=== PATIENT | male | born 1950 | race Caucasian/White ===

== ENCOUNTER 2016-08-15 14:29 | Observation (INO) ==
--- NOTE | 2016-08-15 16:05 | Emergency Department Note ---
Disposition Clinical Impression: Dizziness, nonspecific Chest pain Qualifiers: Chest pain type: unspecified Qualified Code(s): R07.9 - Chest pain, unspecified Disposition: Admitted As Inpatient Condition: Good Referrals: Manolo Monson MD [Primary Care Provider] - Forms: ED Satisfaction Letter Chest Pain HPI - General Chief Complaint: ED Chest Pain Stated Complaint: chest pain, sent from Dr. Monson Time Seen by Provider: 08/15/16 15:32 Source: patient, family Limitations: no limitations Vital Signs Reviewed: Yes Nursing Notes Reviewed: Yes - History of Present Illness HPI Narrative: Patient is a 65-year-old male who presents from his PCP office for 4 days of multiple symptoms including chest pain, dyspnea, abnormal gait, and also feeling like he just does not feel well. He has had a CVA workup in 2014 also follows with a neurologist for stuttering and migraines and also had a negative cardiac catheterization 1999. He does have a strong family history for coronary disease his son had a 5 vessel CABG at the age of 43 and his grandfather of [place] at 44. He states he gets episodes where he gets some chest pain nausea diaphoretic is off-balance lightheaded and also runs in the things. This can last upwards of an hour and then resolves on its own. Nothing seems to make this better or worse he saw his memory care doctor today who was concerned and sent him over to the ER for hospitalization Pt complaint: chest pain Onset (ago): day(s) (4) Severity scale (1-10): 10 Improves with: nothing Worsens with: nothing Treatments prior to arrival chest pain: aspirin - Related Data Home Medications Medication Instructions Recorded Confirmed Ambien 5 mg PO DAILY 01/26/15 01/26/15 Atenolol 01/26/15 01/26/15 Carvedilol Phosphate [Coreg Cr] 40 mg PO DAILY 01/26/15 01/26/15 Duloxetine 60 mg PO BID 01/26/15 01/26/15 Gabapentin 1,200 mg PO TID 01/26/15 01/26/15 Insulin DETEMIR [Levemir] 90 unit SQ HS 01/26/15 01/26/15 Levemir 75 units SQ QAM 01/26/15 01/26/15 Losartan/Hydrochlorothiazide 01/26/15 01/26/15 Metformin 1,000 mg PO BID 01/26/15 01/26/15 [place] 10-325 Tablet 1 tab PO QID 01/26/15 01/26/15 NovoLOG 30 units SQ TID 01/26/15 01/26/15 Vitamin D3/Folic Acid [Ortho D 2 each PO DAILY 01/26/15 01/26/15 3,775 Unit-1 mg Cap] Previous Rx's Medication Instructions Recorded Aspirin 325 mg PO DAILY #30 tablet 01/26/15 Topiramate [Topamax] 25 mg PO HS #30 tablet 01/26/15 Allergies Allergy/AdvReac Type Severity Reaction Status Date / Time Bee Pollen Allergy Anaphylaxis Verified 08/15/16 14:46 pregabalin [From Lyrica] Allergy Depression Verified 08/15/16 14:46 Warfarin [From Coumadin] Allergy See Verified 08/15/16 14:46 Comments All systems ED: reviewed and negative except as stated. Constitutional: Reports: chills, weakness. Denies: fever Cardiovascular: Reports: chest pain, palpitations Respiratory: Reports: dyspnea Neurological: Reports: weakness, abnormal gait Chest Pain PMH - Past Medical History Medical history: Reports: diabetes, GERD, hyperlipidemia, hypertension, other Psychiatric history: Reports: no psych history - Social History Smoking Status: Former smoker Alcohol use: Reports: none Drug use: Reports: none Physical Exam - General Limitations: no limitations General appearance: alert - Head Head exam: atraumatic, normocephalic, normal inspection - Eye Eye exam: Present: normal appearance, PERRL, EOMI - Expanded Eye Exam Pupils: Left: reactive - ENT ENT exam: normal exam, normal oropharynx, mucous membranes moist - Expanded ENT Exam External ear exam: Present: normal external inspection Mouth exam: Present: normal external inspection Teeth exam: Present: normal inspection Throat exam: Present: normal inspection - Neck Neck exam: Present: normal inspection, full ROM, trachea midline - Chest Chest inspection: Present: normal inspection, symmetric chest wall rise - Respiratory Respiratory exam: Present: normal lung sounds bilaterally - Cardiovascular Cardiovascular exam: Present: regular rate, normal rhythm, normal heart sounds - Abdominal Exam Abdominal exam: Present: soft, Non-Tender. Absent: tenderness, distention, guarding, rebound, rigidity - Extremities Exam Extremities exam: Present: normal inspection, full ROM. Absent: tenderness, pedal edema - Expanded Upper Extremity Exam Shoulder exam: Present: normal inspection, full ROM Arm exam: Present: normal inspection, full ROM Elbow exam: Present: normal inspection, full ROM Forearm/Wrist exam: Present: normal inspection, full ROM Hand exam: Present: normal inspection, full ROM Vascular exam: Normal: capillary refill, radial pulse - Expanded Lower Extremity Exam Hip/Pelvis exam: Present: normal inspection, full ROM Upper leg exam: Present: normal inspection, full ROM Knee exam: Present: normal inspection, full ROM Lower leg exam: Present: normal inspection, full ROM Ankle exam: Present: normal inspection, full ROM Foot/toe exam: Present: normal inspection, full ROM Neurovascular/Tendon exam: Absent: motor deficit, sensory deficit, tendon deficit - Back Exam Back exam: Present: normal inspection, full ROM. Absent: tenderness - Neurological Exam Neurological exam: Present: alert, oriented X3 - Expanded Neurological Exam Patient oriented to: Present: person, place, time Coma Scale Eye Opening: Spontaneous Coma Scale Motor Response: Obeys Commands Coma Scale Verbal Response: Oriented Coma Scale Total: 15 - Psychiatric Psychiatric exam: Present: normal affect, normal mood - Skin Skin exam: Present: warm, dry, intact, normal color Course Vital Signs Temperature 97.5 F L 08/15/16 14:42 Pulse Rate 71 08/15/16 14:42 Respiratory Rate 18 08/15/16 14:42 Blood Pressure 150/79 08/15/16 14:42 O2 Sat by Pulse Oximetry 96 08/15/16 14:42 Temperature 97.5 F L 08/15/16 14:42 Pulse Rate 62 08/15/16 17:53 Respiratory Rate 18 08/15/16 17:53 Blood Pressure 155/81 08/15/16 17:53 O2 Sat by Pulse Oximetry 93 08/15/16 17:53 Oxygen Delivery Oxygen Delivery Room Air Chest Pain - Differential Diagnosis Likely: stable angina, unstable angina pectoris, atypical chest pain, chest pain - Medical Records Medical records reviewed: Yes I reviewed the patient's medical records. - Lab Data Lab results reviewed: Yes I reviewed the patient's lab results. Result diagrams: 08/15/16 15:56 08/15/16 15:56 Lab Results 08/15/16 08/15/16 08/15/16 Range/Units 15:56 15:56 15:56 WBC 8.3 (4.3-11.1) K/mcL RBC 5.13 (4.19-5.50) M/mcL Hgb 15.0 (12.9-16.9) g/dL Hct 45.0 (37.5-50.1) % MCV 87.7 (83.0-100.0) fL MCH 29.2 (28.0-33.3) pg MCHC 33.3 (31.6-35.5) g/dL RDW 13.2 (11.5-14.5) % Plt Count 368 (140-400) K/mcL MPV 9.3 L (9.4-12.4) fL Immature Gran % 0.5 (0-4) % Seg Neutrophils % 57.0 % Lymphocytes % 27.4 % Monocytes % 9.8 % Eosinophils % 4.1 % Basophils % 1.2 % Neutrophils # 4.7 (1.6-8.9) K/mcL Lymphocytes # 2.3 (0.6-4.6) K/mcL Monocytes # 0.8 (0.0-1.3) K/mcL Eosinophils # 0.3 (0.0-0.6) K/mcL Basophils # 0.1 (0.0-0.2) K/mcL PT 10.3 (9.4-12.1) Seconds INR 1.0 APTT 30.0 (26.0-36.0) Seconds D-Dimer 263 (0-500) ng/mLFEU Sodium 134 L (136-145) mEq/L Potassium 3.6 (3.5-4.5) mEq/L Chloride 99 (98-109) mEq/L Carbon Dioxide 23 (19-29) mEq/L BUN 13 (8-26) mg/dL Creatinine 1.46 H (0.72-1.25) mg/dL Est GFR ( Amer) 59 L (> 60) Est GFR (Non-Af Amer) 48 L (> 60) BUN/Creatinine Ratio 9 (6-26) Glucose 254 H (70-99) mg/dL Calculated Osmolality 287 (280-300) Calcium 9.6 (8.6-10.8) mg/dL Troponin I (0-0.03) ng/mL 08/15/16 Range/Units 15:56 WBC (4.3-11.1) K/mcL RBC (4.19-5.50) M/mcL Hgb (12.9-16.9) g/dL Hct (37.5-50.1) % MCV (83.0-100.0) fL MCH (28.0-33.3) pg MCHC (31.6-35.5) g/dL RDW (11.5-14.5) % Plt Count (140-400) K/mcL MPV (9.4-12.4) fL Immature Gran % (0-4) % Seg Neutrophils % % Lymphocytes % % Monocytes % % Eosinophils % % Basophils % % Neutrophils # (1.6-8.9) K/mcL Lymphocytes # (0.6-4.6) K/mcL Monocytes # (0.0-1.3) K/mcL Eosinophils # (0.0-0.6) K/mcL Basophils # (0.0-0.2) K/mcL PT (9.4-12.1) Seconds INR APTT (26.0-36.0) Seconds D-Dimer (0-500) ng/mLFEU Sodium (136-145) mEq/L Potassium (3.5-4.5) mEq/L Chloride (98-109) mEq/L Carbon Dioxide (19-29) mEq/L BUN (8-26) mg/dL Creatinine (0.72-1.25) mg/dL Est GFR ( Amer) (> 60) Est GFR (Non-Af Amer) (> 60) BUN/Creatinine Ratio (6-26) Glucose (70-99) mg/dL Calculated Osmolality (280-300) Calcium (8.6-10.8) mg/dL Troponin I 0.00 (0-0.03) ng/mL - Radiology Data Radiology results reviewed: Yes I reviewed the patient's radiology results. - EKG Data EKG attestation: Yes I reviewed and interpreted this EKG. EKG shows normal: sinus rhythm Rate: normal Rhythm: NSR Voltage: c/w LVH Interpretation: no acute changes, unchanged when compared to prior tracing (date ) (01/15/15)
[2016-08-15 16:06] LABS: Basophils # 0.1 K/mcL (0.0-0.2); Basophils % 1.2 %; Eosinophils # 0.3 K/mcL (0.0-0.6); Eosinophils % 4.1 %; Immature Granulocytes % 0.5 % (0-4); Lymphocytes # 2.3 K/mcL (0.6-4.6); Lymphocytes % 27.4 %; Mean Corpuscular HGB Conc 33.3 g/dL (31.6-35.5); Mean Corpuscular Hemoglobin 29.2 pg (28.0-33.3); Mean Corpuscular Volume 87.7 fL (83.0-100.0); Mean Platelet Volume 9.3 fL (9.4-12.4); Monocytes # 0.8 K/mcL (0.0-1.3); Monocytes % 9.8 %; Neutrophils # 4.7 K/mcL (1.6-8.9); Platelet Count 368 K/mcL (140-400); Red Blood Count 5.13 M/mcL (4.19-5.50); Red Cell Distribution Width 13.2 % (11.5-14.5)
[2016-08-15 16:12] LABS: Prothrombin Time 10.3 Seconds (9.4-12.1)
[2016-08-15 16:20] LABS: Calcium 9.6 mg/dL (8.6-10.8); Potassium 3.6 mEq/L (3.5-4.5)
--- NOTE | 2016-08-15 18:11 | Electrocardiograph Report ---
[facility] Test Date: 2016-08-15 Pat Name: Lucio Valenzuela Department: 104 Room: Gender: M [employer]: : 1950 Requested By: Inocencia Goodwin Order Number: [id number] Reading MD: Rasta Ellsworth MD Measurements Intervals [place] Rate: 65 P: 27 IL: 156 QRS: -5 QRSD: 106 T: 145 QT: 393 QTc: 405 Interpretive Statements SINUS RHYTHM LEFT VENTRICULAR HYPERTROPHY AND ST-T CHANGE Electronically Signed On 08-15-2016 18:10:06 EDT by Rasta Ellsworth MD
[2016-08-15] MEDS ORDERED: Aspirin 81 MG TAB.CHEW PO STA (20:05)
--- NOTE | 2016-08-15 20:57 | Internal Med History&Physical ---
Date of Encounter: 08/15/16 Time of Encounter: 20:53 Assessment and Plan (1) Chest pain Current visit: Yes Status: Acute patient with multiple cardiac risk factor presenting with typical chest pain of cardiac , ekg is abormal inferior lat st t changes more of lvh/ strain will start with nuclear stress in am Qualifiers: Chest pain type: unspecified Qualified Code(s): R07.9 - Chest pain, unspecified (2) Dizziness, nonspecific Current visit: Yes Status: Chronic non specific possible progresion of his prior cva neuro consult (3) Diabetes Current visit: No Status: Chronic resume home meds and sliding scale Qualifiers: Diabetes mellitus type: type 2 Diabetes mellitus complication status: with unspecified complications Diabetes mellitus oysterman insulin use: unspecified residential insulin use status Qualified Code(s): E11.8 - Type 2 diabetes mellitus with unspecified complications (4) Hypertension Current visit: No Status: Chronic uncontrollled with likely contribution of ischemia Qualifiers: Hypertension type: essential hypertension Qualified Code(s): I10 - Essential (primary) hypertension (5) Acute renal failure Current visit: No Status: Acute will start iv hydration and monitor Qualifiers: Acute renal failure type: unspecified Qualified Code(s): N17.9 - Acute kidney failure, unspecified Internal Medicine - H&P: HPI Chief complaint: chest pain and sob Admitted From: Emergency Dept Plans for Post Hospital Care: Home History of present illness: Mr. Valenzuela is a 65 year old male Patient with history of diabetes, obesity, prior CVA 2015 , hypertension, high cholesterol, strong family history of CAD patient presents to Emergency room with 4 days of chest pain described chest pain as a tightness and pressure associated with nausea and diaphoresis, . chest pain recurrent and sometimes wakes up at night and decided to come to the emergency room also has concern of abnormal gait He did have CVA 2015. He is now chest pain-free at the time am seeing him EKG is abnormal showing inferior lateral ST T wave changes nonspecific troponin so far is negative blood pressure was high at 1 70/78 Past Med Surg Social Fam HX - Past Medical History Medical history: CVA, diabetes, GERD, hyperlipidemia, hypertension, other Psychiatric history: no psych history - Social History Smoking Status: Former smoker Smokeless Tobacco Status: No Alcohol use: none Drug use: none - Family History Mother Family Member Ethnicity: Non- Living Status: Hx Family Cancer: Yes (stomach cancer.) Son Family Member Ethnicity: Non- Living Status: Still Living Hx Family Cardiac Disorders: Yes ([place] with 5 stents.) Internal Medicine - H&P: Meds Aspirin 325 mg PO DAILY #30 tablet 01/26/15 [Rx] Carvedilol Phosphate [Coreg Cr] 40 mg PO DAILY 01/26/15 [History] Duloxetine HCl [Cymbalta] 60 mg PO BID #0 01/26/15 [History] Gabapentin [Neurontin] 1,200 mg PO TID #0 01/26/15 [History] HYDROcodone/Acet 10/325 mg [[place] 10-325 mg] 1 tab PO Q6HR PRN #0 01/26/15 [ History] Hydrochlorothiazide 25 mg PO DAILY #0 01/26/15 [History] Insulin ASPART [Novolog] 150 unit SQ DAILY #0 MDD PER INSULIN PUMP 01/26/15 [ History] Lisinopril [Zestril] 10 mg PO DAILY #0 01/26/15 [History] Metformin HCl [Glucophage] 1,000 mg PO BID #0 01/26/15 [History] Zolpidem [Ambien] 5 mg PO HS PRN #0 01/26/15 [History] Amlodipine Besylate 10 mg PO DAILY 08/15/16 [History] Atorvastatin [Lipitor] 40 mg PO HS 08/15/16 [History] Bisacodyl [Dulcolax] 5 mg PO DAILY PRN 08/15/16 [History] Capsaicin [Zostrix] 1 appl TP TID 08/15/16 [History] Cranberry 500 mg PO DAILY 08/15/16 [History] Diclofenac Sodium [Voltaren] 1 appl TP QID PRN 08/15/16 [History] Donepezil [Aricept] 10 mg PO HS 08/15/16 [History] EPINEPHrine [Epipen] 0.3 mg IM AD PRN 08/15/16 [History] Ergocalciferol (VITAMIN D2) [Vitamin D] 800 unit PO DAILY 08/15/16 [History] Esomeprazole Magnesium [Nexium] 40 mg PO DAILY 08/15/16 [History] Exenatide Microspheres [Bydureon] 2 mg SQ QWEEK 08/15/16 [History] Finasteride [Proscar] 5 mg PO DAILY 08/15/16 [History] Fluticasone Propionate Nasal [Flonase] 1 spray NS DAILY 08/15/16 [History] Guaifenesin [Mucinex] 600 mg PO BID 08/15/16 [History] Lidocaine [Lc-5] 1 appl TP Q4-6H PRN 08/15/16 [History] Loratadine [Allergy Relief] 10 mg PO DAILY 08/15/16 [History] Mineral Oil/Petrolatum,White [Hydrocerin Cream] 1 appl TP DAILY 08/15/16 [ History] Tadalafil [Cialis] 5 mg PO DAILY PRN 08/15/16 [History] Tamsulosin [Flomax] 0.8 mg PO DAILY 08/15/16 [History] Testosterone Cypionate [Depo-Testosterone] 200 mg IM Q2W 08/15/16 [History] Topiramate [Topamax] 25 mg PO BID 08/15/16 [History] Triamcinolone Acet 0.1% CRM [Kenalog] 1 appl TP BID 08/15/16 [History] Allergies Bee Pollen Allergy (Verified 08/15/16 14:46) Anaphylaxis pregabalin [From Lyrica] Allergy (Verified 08/15/16 14:46) Depression Warfarin [From Coumadin] Allergy (Verified 08/15/16 14:46) See Comments All Systems PM: A 10-system review of systems was performed and is negative for pertinent findings except as documented above in the HPI. - Constitutional Constitutional: fatigue - EENT Eyes: no change in vision, no discharge, no pain, no photophobia Ears: no ear discharge, no ear pain, no tinnitus Nose, mouth and throat: no dysphagia, no nasal discharge, no neck pain, no sore throat - Cardiovascular Cardiovascular ROS IM: chest pain, diaphoresis, dyspnea on exertion - Respiratory Respiratory: dyspnea, dyspnea on exertion - Gastrointestinal Gastrointestinal: no abdominal pain, no diarrhea, no hematemesis, no hematochezia, no melena, no nausea, no vomiting - Musculoskeletal Musculoskeletal ROS IM: no numbness, no tingling - Neurological Neurological ROS: no confusion, no convulsions, no focal weakness, no numbness, no tingling, no tremor(s) - Hematologic/Lymphatic Hematologic/Lymphatic: no easy bruising - Constitutional Vitals: Temp Pulse Resp BP Pulse Ox 97.7 F 63 16 176/78 98 08/15/16 20:30 08/15/16 20:30 08/15/16 20:30 08/15/16 20:30 08/15/16 20:30 General appearance: Present: A&O X 3 - Eye Eye exam: Present: PERRL, conjuntiva pink, sclera anicteric Pupils: Present: PERRL - Respiratory Respiratory exam: Present: CTAB. Absent: accessory muscle use, rales, rhonchi, wheezes - Cardiovascular Cardiovascular exam: Present: RRR, +S1, +S2, systolic murmur. Absent: diastolic murmur, gallop, rubs - GI/Abdominal GI/Abdominal exam: Present: normal bowel sounds, soft, no peritoneal signs. Absent: distended, tenderness - Extremities Exam Extremities exam: Present: warm, radial pulses palpable and symetrical. Absent : calf tenderness, cyanotic, pedal edema Internal Med - H&P Results - Labs CBC & Chem 7: 08/15/16 15:56 08/15/16 15:56
[2016-08-15] MEDS ORDERED: *HR* Morphine 2 MG/ML SYRINGE IVP PRN (21:04)
[2016-08-15] MEDS ORDERED: Naloxone 0.4 MG/ML INJ IVP PRN (21:04)
[2016-08-15] MEDS ORDERED: Lidocaine OINT 35.44 GM TUBE TP PRN (21:06)
[2016-08-15] MEDS ORDERED: Dextrose Gel 15 GM PO PRN ×2 (21:10)
[2016-08-15] MEDS ORDERED: *HR* Dextrose 50 % in Water (Syg) 50 ML SYRINGE IVP PRN (21:10)
[2016-08-15] MEDS ORDERED: D5% in Water 1,000 ML IVC PRN (21:10)
[2016-08-15] MEDS: *HR* HYDROcodone/Acet 10/325 mg TABLET PO PRN (21:55)
[2016-08-15] MEDS: 0.9 % Sodium Chloride 1,000 ML IVC SCH (21:56)
[2016-08-16 04:39] LABS: Chol/HDL Ratio 6.5 (0-4.9); Magnesium 2.2 mg/dL (1.6-2.6)
[2016-08-16] MEDS ORDERED: Regadenoson 0.4 MG/5 ML SYRINGE IVP ONE (06:34)
[2016-08-16] MEDS ORDERED: Insulin LISPRO 300 UNITS/3 ML VIAL SQ SCH ×2 (07:30→21:00)
[2016-08-16] MEDS ORDERED: hydroCHLOROthiazide 25 MG TABLET PO SCH (09:00)
[2016-08-16] MEDS ORDERED: Fluticasone Propionate Nasal 50 MCG/SPRAY BOTTLE NS SCH (09:00)
[2016-08-16] MEDS ORDERED: Gabapentin 400 MG CAPSULE PO SCH (09:00)
[2016-08-16] MEDS ORDERED: Aspirin 325 MG TABLET PO SCH (09:00)
[2016-08-16] MEDS ORDERED: amLODIPine 5 MG TABLET PO SCH (09:00)
[2016-08-16] MEDS ORDERED: Cholecalciferol (D-3) 1,000 UNIT TABLET PO SCH (09:00)
[2016-08-16] MEDS ORDERED: Finasteride 5 MG TABLET PO SCH (09:00)
[2016-08-16] MEDS ORDERED: Triamcinolone Acet 0.1% CRM 15 GM TUBE TP SCH (09:00)
[2016-08-16] MEDS ORDERED: Loratadine 10 MG TABLET PO SCH (09:00)
[2016-08-16] MEDS ORDERED: Topiramate 25 MG TABLET PO SCH (09:00)
--- NOTE | 2016-08-16 10:55 | Neurology - Consult Note ---
Date of Encounter: 08/16/16 Time of Encounter: 10:52 Assessment and Plan (1) Dizziness, nonspecific Current Visit: Yes Status: Chronic This gentleman presents with complaint of new onset dizziness without any specific focal or lateralized component of the history or his neurologic examination. His speech is stuttering minimally, however he makes no paraphasic errors and is not dysarthric. I find no asymmetries and strength. Cranial nerves are all intact. However I would like to get a better look at the posterior fossa to rule out cerebellar or brainstem ischemia. Particularly given his prior history and risk factor profile. I would therefore like to obtain an MRI scan of the brain. He is currently taking a full adult aspirin daily. We will maintain his current dosing pending further results of the MRI scan. If it shows evidence of acute ischemia and then we will likely discontinue the aspirin and start Plavix. In the meantime stroke protocol orders should be followed. The documentation in the history of HPI and plan were at least partially created by [employer] voice recognition technology by Dr. Byrd. Errors in grammar, wording or other phrases may exist. If errors are found after the documentation signed, they will be addressed individually in the addendum section of this document when appropriate. History of Present Illness HPI: Mr. Valenzuela is a 65 year old male who is being seen for neurologic consultation secondary to dizziness and unsteadiness. This gentleman has previously seen my former associate Dr. 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 He also has several other stroke risk factors. He presents today with complaints of chest pain with associated "dizziness. He denies any new visual changes. He has a previous history of seeing floaters which has not changed. And he denies any new numbness or paresthesias however goes on to explain that he always has numbness in his legs but is not identified anything new. He feels as though he is still not "clear minded". He stutters minimally. I see no evidence of paraphasic errors or dysarthria when he speaks at all. Currently seeing a neurologist in [place]. He was previously evaluated for primary progressive aphasia which she was ultimately determined not to have. He still has occasional migraine headaches. He also has a history of PTSD. He is currently awake alert oriented to person place and time and able to give a lucid history of his own medical account. A CT scan of the brain does reveal some evidence of atrophy along with some chronic ischemic deep white matter change. I am not able to get a good look at the posterior fossa. I am particularly concerned about an area involving the left brain stem. Past Med Surg Social Fam HX - Past Medical History Medical history: CVA, diabetes, GERD, hyperlipidemia, hypertension, other Psychiatric history: no psych history - Social History Smoking Status: Former smoker Smokeless Tobacco Status: No Alcohol use: none Drug use: none - Family History Mother Family Member Ethnicity: Non- Living Status: Hx Family Cancer: Yes (stomach cancer.) Son Family Member Ethnicity: Non- Living Status: Still Living Hx Family Cardiac Disorders: Yes ([place] with 5 stents.) Medications and Allergies Aspirin 325 mg PO DAILY #30 tablet 01/26/15 [Rx] Carvedilol Phosphate [Coreg Cr] 40 mg PO DAILY 01/26/15 [History] Duloxetine HCl [Cymbalta] 60 mg PO BID #0 01/26/15 [History] Gabapentin [Neurontin] 1,200 mg PO TID #0 01/26/15 [History] HYDROcodone/Acet 10/325 mg [[place] 10-325 mg] 1 tab PO Q6HR PRN #0 01/26/15 [ History] Hydrochlorothiazide 25 mg PO DAILY #0 01/26/15 [History] Insulin ASPART [Novolog] 150 unit SQ DAILY #0 MDD PER INSULIN PUMP 01/26/15 [ History] Lisinopril [Zestril] 10 mg PO DAILY #0 01/26/15 [History] Metformin HCl [Glucophage] 1,000 mg PO BID #0 01/26/15 [History] Zolpidem [Ambien] 5 mg PO HS PRN #0 01/26/15 [History] Amlodipine Besylate 10 mg PO DAILY 08/15/16 [History] Atorvastatin [Lipitor] 40 mg PO HS 08/15/16 [History] Bisacodyl [Dulcolax] 5 mg PO DAILY PRN 08/15/16 [History] Capsaicin [Zostrix] 1 appl TP TID 08/15/16 [History] Cranberry 500 mg PO DAILY 08/15/16 [History] Diclofenac Sodium [Voltaren] 1 appl TP QID PRN 08/15/16 [History] Donepezil [Aricept] 10 mg PO DAILY 08/15/16 [History] EPINEPHrine [Epipen] 0.3 mg IM AD PRN 08/15/16 [History] Ergocalciferol (VITAMIN D2) [Vitamin D] 800 unit PO DAILY 08/15/16 [History] Esomeprazole Magnesium [Nexium] 40 mg PO DAILY 08/15/16 [History] Exenatide Microspheres [Bydureon] 2 mg SQ QWEEK 08/15/16 [History] Finasteride [Proscar] 5 mg PO DAILY 08/15/16 [History] Fluticasone Propionate Nasal [Flonase] 1 spray NS DAILY 08/15/16 [History] Guaifenesin [Mucinex] 600 mg PO BID 08/15/16 [History] Lidocaine [Lc-5] 1 appl TP Q4-6H PRN 08/15/16 [History] Loratadine [Allergy Relief] 10 mg PO DAILY 08/15/16 [History] Mineral Oil/Petrolatum,White [Hydrocerin Cream] 1 appl TP DAILY 08/15/16 [ History] Tadalafil [Cialis] 5 mg PO DAILY PRN 08/15/16 [History] Tamsulosin [Flomax] 0.8 mg PO DAILY 08/15/16 [History] Testosterone Cypionate [Depo-Testosterone] 200 mg IM Q2W 08/15/16 [History] Topiramate [Topamax] 25 mg PO BID 08/15/16 [History] Triamcinolone Acet 0.1% CRM [Kenalog] 1 appl TP BID 08/15/16 [History] Allergies Bee Pollen Allergy (Verified 08/15/16 14:46) Anaphylaxis pregabalin [From Lyrica] Allergy (Verified 08/15/16 14:46) Depression Warfarin [From Coumadin] Allergy (Verified 08/15/16 14:46) See Comments All Systems: A 10-system review of systems was performed and is negative for pertinent findings except as documented above in the HPI. Review of Systems: 10 point review of systems is consistent with a history of present illness otherwise negative. Physical Examination - Vital Signs Vital Signs: Initial Vital Signs Temp Pulse Resp BP Pulse Ox 97.5 F L 71 18 150/79 96 08/15/16 14:42 08/15/16 14:42 08/15/16 14:42 08/15/16 14:42 08/15/16 14:42 - Neurologic Detailed motor examination: grossly full strength in all extremities Detailed sensory examination: other (Decreased sensation to pinprick in a distal to proximal gradient.) Reflex and gait examination: intact Reflexes: Biceps: 1+, Triceps: 1+, Brachioradialis: 1+, Patella: 0, Achilles: 0 Mental Status Examination: awake, alert, oriented to person, oriented to place, oriented to time, follows commands appropriately, answers questions appropriately, no agnosia, no aphasia, no aproxia Cranial nerve examination: PERRL, EOMI, visual pinon intact, corneal reflexes brisk symmetrically, sensory to face intact, mastication intact, no facial asymmetry is present, no dysarthria, hearing is intact symmetrically, soft palate elevates bilaterally upon phonation, gag reflex intact, flexes SCM and trapezius muscles symmetrically with full power, tongue protrudes midline, no atrophy or facial fasiculations present Results - Laboratory Findings CBC and BMP: 08/15/16 15:56 08/15/16 15:56 Abnormal lab findings: Abnormal lab results MPV 9.3 fL (9.4-12.4) L 08/15/16 15:56 Sodium 134 mEq/L (136-145) L 08/15/16 15:56 Creatinine 1.46 mg/dL (0.72-1.25) H 08/15/16 15:56 Est GFR ( Amer) 59 (> 60) L 08/15/16 15:56 Est GFR (Non-Af Amer) 48 (> 60) L 08/15/16 15:56 Glucose 254 mg/dL (70-99) H 08/15/16 15:56 Triglycerides 245 mg/dL (< 150) H 08/16/16 03:44 LDL Cholesterol, Calc 105 mg/dL (0-99) H 08/16/16 03:44 VLDL Cholesterol, Calc 49 mg/dL (< 31) H 08/16/16 03:44 HDL Cholesterol 28 mg/dL (40-59) L 08/16/16 03:44 Cholesterol/HDL Ratio 6.5 (0-4.9) H 08/16/16 03:44 Consult Discharge Plan - Plan Referrals: Beam,Manolo W, MD [Primary Care Provider] - (appointment web requested )
[2016-08-16] MEDS: Capsaicin 0.025% 60 GM TUBE TP SCH ×2 (11:07→15:38)
[2016-08-16] MEDS: *HR* HYDROcodone/Acet 10/325 mg TABLET PO PRN (11:10)
[2016-08-16] MEDS: 0.9 % Sodium Chloride 1,000 ML IVC SCH (11:11)
--- NOTE | 2016-08-16 13:28 | Nuclear Medicine Stress Report ---
Regadenoson Nuclear Stress Name: Lucio Valenzuela Date of Study: 08/16/2016 Date: 1950 Ht: 69.0 in Medical Record#: [id number] Age: 65 Wt: 230.0 lb Gender: Male Order #: [id number] Location: [facility] Room: [facility] Supervising Provider: Reta Schneider CNP Reading Physician: Siddharth Soares DO, FACC, [facility] Ordering Physician: Flori Perea CNP Primary Care Physician: Manolo Monson MD Stress Technologist: George Kearney, STONE SANDB[employer]ER, CPFT Bacteriologist Medical: Ruddy Prasad Impression: Pharmacologic stress ECG is non diagnostic for ischemia due to baseline non-specific ST and T changes. Chest pain reported during stress, which is a nonspecific finding with Lexiscan. Gated EF = 61%. Small sized, mild intensity, primarily fixed inferior/inferolateral defect consistent with artifact. Perfusion imaging was negative for ischemia or infarct. History: Hypertension Diabetes Hypercholesteremia Stress Test Summary: Stress Test Type: Pharmacologic Regadenoson 0.4mg/5ml given IV Baseline Information: Initial Heart Rate: 65 Blood Pressure: 146/70 Stress Information: Stress Time: 4 min 00 sec Test Terminated Due to (primary): As per protocol Maximum Blood Pressure: 120/68 Maximum Heart Rate: 106 Percent Maximum Heart Rate Achieved: 68 Double Product: [id number] METS Reached: 1 Symptoms: Chest pain, Shortness of breath Nuclear Summary: SPECT myocardial perfusion imaging using Tc99m Sestamibi given intravenously was performed at rest and following cardiac stress testing. The resting images were obtained following initial dose of 11.7 mCi. Following stress an additional dose of 34.9 mCi was given at peak exercise or 30 seconds post regadenoson infusion. Medication Given: Time Medication Dose Units Route Findings: Stress Note * Resting ECG demonstrated normal sinus rhythm with ST-T changes. * No baseline arrhythmias were noted. * Pharmacologic stress ECG is non diagnostic for ischemia due to baseline non-specific ST and T changes. * No arrhythmias were noted during stress. * Chest pain reported during stress, which is a nonspecific finding with Lexiscan. * Normal hemodynamic responses to pharmacologic stress. Study Quality * Study quality is average. Gated EF % * Gated EF = 61%. * Normal wall motion. Inferior Perfusion Rest * The inferior/inferolateral segment shows a mild reduction in perfusion. Inferior Perfusion Stress * The inferior/inferolateral segment shows a mild reduction in perfusion. TID * No evidence of transient ischemic dilatation. * TID ratio = 1.12. Lung Uptake * There is no evidence of increase lung uptake. Updated by Siddharth Soares DO, GUS, BUD, TAMANNA on 08/16/2016 1:18:51 PM electronically signed on 08/16/2016 1:23:07 PM with status of Final
--- NOTE | 2016-08-16 15:24 | Discharge Summary ---
Date of Encounter: 08/16/16 Time of Encounter: 14:15 - Discharge Diagnosis (1) Chest pain Priority: Primary Status: Resolved Comments: Patient denied chest pain on day of discharge. Chest x-ray negative. Troponins negative. Stress test negative. ACS ruled out. Qualifiers: Chest pain type: unspecified Qualified Code(s): R07.9 - Chest pain, unspecified (2) Dizziness, nonspecific Priority: Secondary Status: Chronic Comments: Seen and evaluated by neurology who knows this patient well. 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 He denied any change or new focal neurological weaknesses. No vision difficulties. Brain MRI was obtained on day of discharge which was unremarkable for acute processes. Follow-up outpatient. (3) DEBORA (acute kidney injury) Priority: Primary Status: Acute Comments: Patient endorsing normal by mouth intake and urinary output. He denies dysuria. Recommend follow-up outpatient for recheck of CMP. (4) Hyperlipidemia Priority: Secondary Status: Chronic Comments: Triglyceride 245, rest of lipid panel borderline abnormal. Recommend low cholesterol diet and continuing his statin (5) Diabetes Priority: Secondary Status: Chronic Comments: Uncontrolled with an A1c last month of 8.9%. Recommend continued follow-up outpatient. Qualifiers: Diabetes mellitus type: type 2 Diabetes mellitus complication status: with unspecified complications Diabetes mellitus alf insulin use: unspecified alf insulin use status Qualified Code(s): E11.8 - Type 2 diabetes mellitus with unspecified complications (6) Hypertension Priority: Secondary Status: Chronic Comments: Uncontrolled. At home, he is on amlodipine 10 mg daily, lisinopril 10 mg daily , carvedilol 40 mg daily, HCTZ 25 mg daily. Heart rate average in the 60s. Will increase his lisinopril and have him check his blood pressure daily at home and follow up outpatient Qualifiers: Hypertension type: essential hypertension Qualified Code(s): I10 - Essential (primary) hypertension - Discharge Medications Prescriptions: Lisinopril [Zestril] 20 mg PO DAILY #30 tablet Home Medications: Aspirin 325 mg PO DAILY #30 tablet 01/26/15 [Rx] Carvedilol Phosphate [Coreg Cr] 40 mg PO DAILY 01/26/15 [History] Duloxetine HCl [Cymbalta] 60 mg PO BID #0 01/26/15 [History] Gabapentin [Neurontin] 1,200 mg PO TID #0 01/26/15 [History] HYDROcodone/Acet 10/325 mg [[place] 10-325 mg] 1 tab PO Q6HR PRN #0 01/26/15 [ History] Hydrochlorothiazide 25 mg PO DAILY #0 01/26/15 [History] Insulin ASPART [Novolog] 150 unit SQ DAILY #0 MDD PER INSULIN PUMP 01/26/15 [ History] Metformin HCl [Glucophage] 1,000 mg PO BID #0 01/26/15 [History] Zolpidem [Ambien] 5 mg PO HS PRN #0 01/26/15 [History] Amlodipine Besylate 10 mg PO DAILY 08/15/16 [History] Atorvastatin [Lipitor] 40 mg PO HS 08/15/16 [History] Bisacodyl [Dulcolax] 5 mg PO DAILY PRN 08/15/16 [History] Capsaicin [Zostrix] 1 appl TP TID 08/15/16 [History] Cranberry 500 mg PO DAILY 08/15/16 [History] Diclofenac Sodium [Voltaren] 1 appl TP QID PRN 08/15/16 [History] Donepezil [Aricept] 10 mg PO DAILY 08/15/16 [History] EPINEPHrine [Epipen] 0.3 mg IM AD PRN 08/15/16 [History] Ergocalciferol (VITAMIN D2) [Vitamin D] 800 unit PO DAILY 08/15/16 [History] Esomeprazole Magnesium [Nexium] 40 mg PO DAILY 08/15/16 [History] Exenatide Microspheres [Bydureon] 2 mg SQ QWEEK 08/15/16 [History] Finasteride [Proscar] 5 mg PO DAILY 08/15/16 [History] Fluticasone Propionate Nasal [Flonase] 1 spray NS DAILY 08/15/16 [History] Guaifenesin [Mucinex] 600 mg PO BID 08/15/16 [History] Lidocaine [Lc-5] 1 appl TP Q4-6H PRN 08/15/16 [History] Loratadine [Allergy Relief] 10 mg PO DAILY 08/15/16 [History] Mineral Oil/Petrolatum,White [Hydrocerin Cream] 1 appl TP DAILY 08/15/16 [ History] Tadalafil [Cialis] 5 mg PO DAILY PRN 08/15/16 [History] Tamsulosin [Flomax] 0.8 mg PO DAILY 08/15/16 [History] Testosterone Cypionate [Depo-Testosterone] 200 mg IM Q2W 08/15/16 [History] Topiramate [Topamax] 25 mg PO BID 08/15/16 [History] Triamcinolone Acet 0.1% CRM [Kenalog] 1 appl TP BID 08/15/16 [History] Lisinopril [Zestril] 20 mg PO DAILY #30 tablet 08/16/16 [Rx] Allergies/Adverse Reactions: Allergies Bee Pollen Allergy (Verified 08/15/16 14:46) Anaphylaxis pregabalin [From Lyrica] Allergy (Verified 08/15/16 14:46) Depression Warfarin [From Coumadin] Allergy (Verified 08/15/16 14:46) See Comments Procedures/tests Complete & Pending: Procedures Performed prior 72 hours Category Date Time Status NM tian perf SPECT multi [NM] Routine Exams 08/15/16 21:06 Taken MR head/brain wo con [MR] Stat MRI 08/16/16 11:23 Taken SP pharm nuclear stress Routine Y 08/15/16 21:06 Completed Date of admission: 08/15/16 19:05 Primary care physician: Manolo Monson MD Consults: 08/15/16 21:10 Consult to Neurology [CONS] Routine Consulting Provider: Neurology [facility] Reason for Consult: ataxia /abn gait Time Notified: 21:11 Call Completed: No Discharging clinician: Flori Perea Anticipated date of discharge: 08/16/16 - Patient Status Disposition: Home, Self-Care Condition: Fair Functional capacity at discharge: uses cane/walker Overall status at discharge: patient is back to baseline - Discharge Instructions Follow Up With: Manolo Monson MD [Primary Care Provider] - (appointment web requested ) Additional Instructions: Follow-up with primary care provider as scheduled - Diet and Activity Activity: increase activity as tolerated Diet: diabetic diet, low fat, low cholesterol, low salt diet Hospital course: Mr. Valenzuela is a 65 year old male with past medical history of CVA, hypertension , hyperlipidemia, diabetes, and former tobacco abuse. Patient presented to the emergency room for chief complaint 4 day history of chest pain described as tightness and pressure with nausea and diaphoresis. EKG emergency department with nonspecific ST-T wave changes. Patient was admitted to the hospitalist service for further evaluation and management. Chest x-ray negative. Head CT negative. Troponins negative. Echo stress test negative for ischemia or infarct and revealed an ejection fraction of 61%. Regarding his ataxia and complaint of dizziness, neurology was brought on board. His ataxia is not new for him and as it resulted from his stroke in 2015. He walks with a cane. He had no new focal neurological weaknesses but the dizziness was new cerebral brain MRI was obtained which was unremarkable. Per neurology, continue full strength aspirin and he has been cleared for outpatient follow-up. There was no indication for OT or PT consultations given that the patient was consistent with his baseline. Of note, he did have mild acute kidney injury of unknown etiology. He denied dysuria. He states he had good by mouth intake, recommend follow-up outpatient for repeat BMP. Regarding his blood pressure, it was uncontrolled. At home, he is on amlodipine 10 mg daily, lisinopril 10 mg daily , carvedilol 40 mg daily, HCTZ 25 mg daily. Heart rate average in the 60s so his lisinopril was increased and he was instructed to check his blood pressure daily at home, keep a log, and follow-up outpatient. He was discharged home in stable condition with close outpatient follow-up recommended. ITS Impressions Chest X-Ray 08/15/16 14:46 IMPRESSION: No acute process. D/ / 08/15/2016 15:08:43 Conrad Valdez MD / uriel Interpreting Provider: Conrad Valdez MD Head CT 08/15/16 15:59 IMPRESSION: No acute intracranial abnormality. D/ / Mt Shah MD / Mt Shah MD Interpreting Provider: Mt Shah MD Brain MRI 08/16/16 11:23 IMPRESSION: Cerebral atrophy. Mild chronic small vessel ischemic disease. No acute brain parenchymal abnormality. D/ / Claire Abreu MD / Claire Abreu MD Interpreting Provider: Claire Abreu MD Nuclear stress test impression: Pharmacologic stress ECG is nondiagnostic for ischemia due to baseline nonspecific ST and T changes. Chest pain reported during stress, which is a nonspecific finding with Lexiscan. Gated ejection fraction equals 61%. Small size, mild intensity, primarily fixed inferior/ inferolateral defect consistent with artifact. Perfusion imaging was negative for ischemia or infarct. - Time Spent with Patient Total time spent providing and/or coordinating discharge services: - Constitutional Vitals: Temp Pulse Resp BP Pulse Ox 97.4 F L 63 16 162/63 94 08/16/16 11:05 08/16/16 11:05 08/16/16 11:05 08/16/16 11:05 08/16/16 11:05 General appearance: Present: A&O X 3, pleasant, no acute distress, answers questions appropriately - Head Head exam: Present: atraumatic, normocephalic - Eye Eye exam: Present: PERRL, conjuntiva pink, sclera anicteric Pupils: Present: PERRL - Neck Neck exam general surgery: Present: supple, trachea midline. Absent: lymphadenopathy - Respiratory Respiratory exam: Present: decreased breath sounds. Absent: accessory muscle use, rales, respiratory distress, rhonchi, wheezes - Cardiovascular Cardiovascular exam: Present: RRR, +S1, +S2. Absent: diastolic murmur, gallop, rubs, systolic murmur - GI/Abdominal GI/Abdominal exam: Present: normal bowel sounds, soft, no peritoneal signs. Absent: distended, tenderness - Extremities Exam Extremities exam: Present: warm, radial pulses palpable and symetrical. Absent : calf tenderness, cyanotic, pedal edema - Neurological Exam Neurological exam: Present: alert, CN II-XII intact, oriented X3, no focal deficits, strengths equal and symetr throughout. Absent: normal gait, pronater drift, facial droop, speech deficit - Skin Skin exam: Present: dry, intact, normal color, warm
[2016-08-19 10:29] VITALS: BP 152/63
== END 2016-08-16 16:04 | disposition home or self-care (01) ==
LOC: 3BNU 14:29 → EMEROO 14:29 → 3BNU 20:00
PROVIDERS: ADMIT Nurse Practitioner Acute Care; ATTEND Nurse Practitioner Family